=== PATIENT | female | born 1970 | race Two or more races ===

== ENCOUNTER 2017-06-22 21:21 | Emergency (ER) | payer MEDICAID, OTHER ==
[~2017-06-22] VITALS: Ht 157.5 cm; Wt 94.3 kg
[2017-06-22 22:53] LABS: Urine Bilirubin Negative (Negative); Urine Blood Negative /uL (Negative); Urine Color Yellow (Yellow); Urine Glucose Normal (Normal); Urine Ketone Negative (Negative); Urine Mucus FEW (None Seen); Urine Nitrite POSITIVE (Negative); Urine RBC 3 /hpf (0 - 4); Urine Squamous Epithelial Cell FEW /hpf (<5)
[2017-06-23] MEDS ORDERED: MORPHINE SULFATE INJECTION 1 ML ONE (04:40)
[2017-06-23] MEDS ORDERED: ONDANSETRON HCL 4 MG/2 ML VIAL IV ONE (04:45)
[2017-06-23] MEDS ORDERED: MORPHINE SULF INJ 2 MG/ML SYRINGE 1ML IV ONE (04:45)
[2017-06-23 06:16] LABS: Basophils # (auto) 0 uL; Basophils % (auto) 0.2 % (0.0-2.0); Eosinophils # (auto) 0 uL; Eosinophils % (auto) 0.4 % (0.0-7.0); Hematocrit 33.1 % (36.0-46.0); Hemoglobin 10.8 g/dL (12.2-16.2); Lymphocytes # (auto) 1.2 uL; Lymphocytes % (auto) 10.8 % (10.0-50.0); Mean Corpuscular Hgb Conc. 32.7 g/dL (32.0-36.0); Mean Corpuscular Volume 88.6 fL (80.0-100.0); Mean Platelet Volume 7.6 fL (6.9-10.8); Monocytes # (auto) 1.2 uL; Monocytes % (auto) 10.6 % (0.0-12.0); Neutrophils # (auto) 8.7 uL; Nucleated Red Blood Cells % 0.1 %; Platelet Count (auto) 225 10^3/uL (140-450); Red Cell Distribution Width 14.3 % (11.8-14.3); White Blood Cell 11.1 10^3/uL (4.4-10.8)
[2017-06-23 06:34] LABS: Potassium 3.8 mmol/L (3.5-5.1)
[2017-06-23 06:38] LABS: Albumin 2.8 g/dL (3.4-5.0); BUN/Creatinine Ratio 11.4; Calcium 7.9 mg/dL (8.5-10.1)
[2017-06-23 06:41] LABS: Bilirubin, Total 0.3 mg/dL (0.2-1.0); Total Protein 6.7 g/dL (6.4-8.2)
[2017-06-23 07:06] VITALS: BP 125/63
[2017-06-23] MEDS ORDERED: cefTRIAXone 1GM/50ML D5W 50 ML IV ONE (07:15)
== END 2017-06-23 09:16 | disposition home or self-care (01) ==
LOC: ER 21:31
DX: N39.0 Urinary tract infection, site not specified (principal); J45.909 Unspecified asthma, uncomplicated; I10 Essential (primary) hypertension; E11.9 Type 2 diabetes mellitus without complications; E44.0 Moderate protein-calorie malnutrition; Z68.38 Body mass index [BMI] 38.0-38.9, adult; K76.0 Fatty (change of) liver, not elsewhere classified
CPT/HCPCS: 36415; 74176; 80053; 81001; 82150; 83690; 84702; 85025; 96374; 96375; 99285; J2270; J2405; J7030

== ENCOUNTER 2021-07-18 08:05 | Emergency (ER) | payer MEDICAID ==
[~2021-07-18] VITALS: Ht 160 cm; Wt 91.2 kg
[2021-07-18 08:07] VITALS: BP 172/89
[2021-07-18 09:08] LABS: Urine Bacteria NONE SEEN /hpf (None Seen); Urine Blood TRACE /uL (Negative); Urine Specific Gravity 1.018 (1.001-1.035); Urine WBC <1 /hpf (0 - 5)
[2021-07-18 09:14] LABS: Basophils # (auto) 0 10 ^3/uL (0-0.2); Basophils % (auto) 0.5 % (0.0-2.0); Eosinophils # (auto) 0.2 10 ^3/uL (0-0.8); Eosinophils % (auto) 2.8 % (0.0-7.0); Hematocrit 38.4 % (36.0-46.0); Hemoglobin 12.9 g/dL (12.2-16.2); Lymphocytes # (auto) 1.5 10 ^3/uL (0.4-5.4); Lymphocytes % (auto) 27.6 % (10.0-50.0); Mean Corpuscular Hgb Conc. 33.7 g/dL (32.0-36.0); Monocytes # (auto) 0.4 10 ^3/uL (0-1.3); Monocytes % (auto) 6.8 % (0.0-12.0); Neutrophils # (auto) 3.4 10 ^3/uL (1.6-8.6); Neutrophils % (auto) 62.3 % (37.0-80.0); Nucleated Red Blood Cells % 0.1 %; Red Blood Cells 4.31 10^6/uL (4.0-5.20); Red Cell Distribution Width 13.7 % (11.8-14.3); White Blood Cell 5.5 10^3/uL (4.4-10.8)
[2021-07-18 09:20] LABS: Albumin 3.6 g/dL (3.4-5.0); Calcium 8.5 mg/dL (8.5-10.1)
[2021-07-18 09:24] LABS: BUN/Creatinine Ratio 22.1; Bilirubin, Total 0.3 mg/dL (0.2-1.0); Total Protein 7.8 g/dL (6.4-8.2)
== END 2021-07-18 09:20 | disposition left against medical advice (07) ==
LOC: ER 08:05
DX: M54.9 Dorsalgia, unspecified (principal); Z53.21 Procedure and treatment not carried out due to patient leaving prior to being seen by health care provider
CPT/HCPCS: 36415; 80053; 81001; 85025; 93005

== ENCOUNTER 2024-12-05 10:45 | Inpatient (IN) | payer MEDICAID ==
[~2024-12-05] VITALS: Ht 160 cm; Wt 94.0 kg
--- NOTE | 2024-12-05 10:58 | ECG ---
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
--- NOTE | 2024-12-05 11:25 | ED.PDOC ---
SOB-HPI HPI Comments 54-year-old female presents with a chief complaint of SOB and cough x onset yesterday. Patient denies supplemental oxygen use at home, but was sating at 91% in triage and placed on 2L/NC. Patient reports that her cough is dry and nonproductive. Patient denies chest pain, abdominal pain, or headache at this time. Patient denies any sick contacts at home. Patient complains of Generalized body aches, dry cough, shortness of breath since last night. Denies sick contacts. PMHx: Depression, DM, HTN PSHx: , Appendectomy HPI: Poor Historian. REVIEW OF SYSTEMS: CONSTITUTIONAL: Denies acute: fever, diaphoresis, chills, HEAD: Denies acute: headache, photophobia Eyes: Denies acute: Double vision, vision loss, eye pain, eye discharge. EARS: Denies acute: tinnitus, hearing loss, ear discharge, ear pain, THROAT: Denies acute: sore throat, swelling, difficulty swallowing , pain with swallowing, change in voice. NECK: Denies acute: neck pain, neck swelling, stiff neck. HEART: Denies acute : chest pain, palpitations, LUNGS: Denies acute: , wheezing, , hemoptysis ABDOMEN: Denies acute: abdominal pain, Nausea, Vomiting, diarrhea, melena , hematemesis, hematochezia SKIN: Denies acute: rash, redness, lesions, itchiness. EXTREMITIES: Denies acute: calf pain, numbness, tingling, weakness, denies pain in extremity. Denies acute: Low back pain. Neuro: Denies acute: focal neurological deficit, motor or sensory focal neurological deficit, tremors, seizure like activity, confusion, dizziness, change in mental status, loss of bowel or bladder function, cauda equina like symptoms. : Denies acute: dysuria, hematuria, flank pain, increase in urinary frequency. PSYCH: Denies acute: hallucination, suicidal ideation, homicidal ideation. FEMALE: Denies acute: abnormal vaginal bleeding, foul odor, unusual discharge. PHYSICAL EXAM: General: [id number] acute distress, awake and alert. Head: normocephalic, atraumatic. Neck: supple, trachea is midline, no swelling. Throat: Normal phonation. Eyes:, no erythema, no purulent discharge, no proptosis, no icterus. Heart: regular tachycardic, no significant murmur appreciated. Lungs: no apparent respiratory distress, Able to speak in full sentences. No wheezing, no rhonchi, no crackles. No stridors Clear to auscultation bilaterally. Abdomen: non tender to palpation, non distended, soft, no guarding, no rebound, + bowel sounds. Obese Neuro: Awake, Alert, oriented to name, self, situation, follows commands GCS=15. Speech is normal. Skin: no petechia, no purpura, no cyanosis, non-pale, not jaundice. Lower extremities: --no - Pitting edema no deformity, no focal swelling, no calf TTP. Makes eye contact. moves all four extremities. Face: No apparent facial droop Ambulating in the ED independently. 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 Was a procedure done?: No Differential Dx Differential Diagnosis: Anxiety, Asthma, Bronchitis, Cardiogenic Shock, CHF, COPD, Dysrhythmia, Hypertension, Hyperventilation, Hyponatremia, Myocardial infarction, Panic Attack, Pneumonia, Pneumothorax, PSVT, Pulmonary Embolism, Respiratory Distress, Sinusitis, Allergic Rhinitis, Otitis Media, URI X-Ray, Labs, Meds, VS Vital Signs Date Time Temp Pulse Resp B/P (MAP) Pulse Ox O2 Delivery O2 Flow Rate FiO2 12/05/24 18:03 98.3 94 20 108/71 (83) 97 98.3 12/05/24 13:13 100.5 108 20 108/67 (81) 97 100.5 12/05/24 13:13 100.5 12/05/24 12:38 18 98 Nasal Cannula* 2 28 12/05/24 12:11 100.7 12/05/24 12:02 100.7 127 20 133/82 (99) 96 100.7 12/05/24 12:02 127 20 96 Nasal Cannula 3.0 12/05/24 11:30 22 96 Nasal Cannula* 3 32 12/05/24 10:57 124 12/05/24 10:55 99.8 125 19 131/80 (97) 91 99.8 Lab Test 12/05/24 19:40 12/05/24 14:38 12/05/24 12:40 12/05/24 11:54 Range/Units Blood Gas Specimen Type Arterial Blood Gas Sample Site Right radial Blood Gas Patient Temperature 37.0 Arterial Blood Date Drawn [id number] Arterial Blood pH 7.428 7.350-7.450 Arterial Blood Partial Pressure CO2 32.2 32.0-45.0 mmHg Arterial Blood Partial Pressure O2 54.4 *L 83.0-108.0 mmHg Arterial Blood HCO3 20.8 L 21.0-28.0 mmol/L Arterial Blood Oxygen Saturation 88.4 L 94.0-98.0 % Arterial Blood Base Excess -2.6 L -2.0-3.0 mmol/L Arterial Blood Oxyhemoglobin 87.5 L 94.0-98.0 % Arterial Blood Carboxyhemoglobin 0.4 L 0.5-1.5 % Arterial Blood Methemoglobin 0.6 0.0-1.5 % Benito Test Yes Blood Gas Total Hemoglobin 13.60 12.0-16.0 g/dL Blood Gas Modality Room air FiO2 % 21.0 Blood Gas Critical Value Read Back Yes Blood Gas Notified Whom po Gómez Blood Gas Notified Time [id number] Blood Gas Notified By Nadia giang Troponin I High Sensitivity 9 4 </=34 ng/L Urine Color Light-yellow Yellow Urine Clarity Clear Clear Urine pH 7.0 5.0-9.0 Urine Specific [place] 1.020 1.001-1.035 Urine Protein Negative Negative Urine Ketones Negative Negative Urine Blood Trace H Negative /uL Urine Nitrite Negative Negative Urine Bilirubin Negative Negative Urine Urobilinogen Normal Negative mg/dL Urine Leukocyte Esterase Negative Negative /uL Urine RBC 5 0 - 4 /hpf Urine Microscopic WBC 7 H 0-5 /HPF Urine Squamous Epithelial Cells Few <5 /hpf Urine Bacteria Few H None Seen /hpf Urine Yeast (Budding) Occasional None Seen /hpf Urine Glucose Normal Normal mg/dL Test 12/05/24 11:21 12/05/24 11:04 Range/Units Influenza Type A Antigen Negative Negative Influenza Type B Antigen Negative Negative SARS-CoV-2 Antigen (Rapid) Negative NEGATIVE White Blood Count 7.2 4.4-10.8 10^3/uL Red Blood Count 4.55 4.0-5.20 10^6/uL Hemoglobin 13.3 12.2-16.2 g/dL Hematocrit 40.1 36.0-46.0 % Mean Corpuscular Volume 88.2 80.0-100.0 fL Mean Corpuscular Hemoglobin 29.3 28.0-32.0 pg Mean Corpuscular Hemoglobin Concent 33.2 32.0-36.0 g/dL Red Cell Distribution Width 13.6 11.8-14.3 % Platelet Count 268 140-450 10^3/uL Mean Platelet Volume 7.8 6.9-10.8 fL Neutrophils (%) (Auto) 85.1 H 37.0-80.0 % Lymphocytes (%) (Auto) 6.1 L 10.0-50.0 % Monocytes (%) (Auto) 7.7 0.0-12.0 % Eosinophils (%) (Auto) 0.5 0.0-7.0 % Basophils (%) (Auto) 0.6 0.0-2.0 % Neutrophils # (Auto) 6.1 1.6-8.6 10 ^3/uL Lymphocytes # (Auto) 0.4 0.4-5.4 10 ^3/uL Monocytes # (Auto) 0.6 0-1.3 10 ^3/uL Eosinophils # (Auto) 0 0-0.8 10 ^3/uL Basophils # (Auto) 0 0-0.2 10 ^3/uL Nucleated Red Blood Cells 0.1 % Sodium Level 137 136-145 mmol/L Potassium Level 3.8 3.5-5.1 mmol/L Chloride Level 102 98-107 mmol/L Carbon Dioxide Level 27 20-31 mmol/L Anion Gap 8 5-15 Blood Urea Nitrogen 11 9-23 mg/dL Creatinine 0.93 0.550-1.02 mg/dL Glomerular Filtration Rate Calc 73 >90 mL/min BUN/Creatinine Ratio 11.8 10.0-20.0 Serum Glucose 113 H 74-106 mg/dL Lactic Acid Level 1.7 0.4-2.0 mmol/L Calcium Level 9.5 8.7-10.4 mg/dL Total Bilirubin 0.4 0.2-1.0 mg/dL Aspartate Amino Transferase (AST) 22 13-40 U/L Alanine Aminotransferase (ALT) 31 7-40 U/L Alkaline Phosphatase 94 46-116 U/L Troponin I High Sensitivity < 3 L </=34 ng/L B-Type Natriuretic Peptide 21.81 0-100 pg/mL Total Protein 7.7 5.7-8.2 g/dL Albumin 4.9 H 3.2-4.8 g/dL Monoscreen Negative Current Medications Medications (Trade) Dose Ordered Sig/Kassie Route Start Time Stop Time Status Last Admin Albuterol (Ventolin Medneb) 2.5 mg ONCE ONCE NEB 12/05/24 11:00 12/05/24 11:01 DC 12/05/24 11:29 Ipratropium [place] (Atrovent Medneb) 1 mg ONCE ONCE NEB 12/05/24 11:00 12/05/24 11:01 DC 12/05/24 11:29 Methylprednisolone Sodium Succinate (Solu Medrol) 125 mg ONCE ONCE IV 12/05/24 11:00 12/05/24 11:01 DC 12/05/24 12:29 Sodium Chloride 1,000 ml @ 1,000 mls/hr Q1H ONCE IV 12/05/24 12:00 12/05/24 12:59 DC 12/05/24 12:20 Acetaminophen (Tylenol Tablet Or Capsule) 1,000 mg ONCE ONCE PO 12/05/24 12:15 12/05/24 12:16 DC 12/05/24 12:11 Ceftriaxone Sodium 50 ml @ 100 mls/hr ONCE ONCE IV 12/05/24 12:15 12/05/24 12:44 DC 12/05/24 12:30 PATIENT: BUD DUGANT: [id number]: [id number] : 1970 LOC: ER ROOM / BED: / AGE / SEX: 54 / F ADM STATUS: REG ER SERVICE 1052 ORDERING PHYSICIAN: MIGUEL GOMEZ DO PROCEDURE(s): CXRP - CHEST PORTABLE REASON: sob ORDER NUMBER(s): [id number], ACCESSION NUMBER(s): [id number] CHEST RADIOGRAPH Indication: sob Technique: Single frontal view of the chest was obtained COMPARISON: None FINDINGS: Lines and Tubes: None Lungs: Clear Pleura: No effusion. No pneumothorax. Cardiomediastinal contours: Unremarkable Bones: Unremarkable IMPRESSION: 1. No acute disease. ATED BY: EDMOND VIZCARRA MD DICTATED DATE/TIME: 12/05/24 1203 SIGNED BY: EDMOND VIZCARRA MD SIGNED DATE/TIME: 12/05/24 1203 Time of 1ST Reevaluation: 11:30 Reevaluation 1ST: Unchanged Patient Education/Counseling: Diagnosis, Treatment Family Education/Counseling: No Family Present Comments Patient presented with the above HPI.--fever-and respiratory symptoms---workup was initiated. patient was found with the above mentioned diagnosis. the following medications were ordered: please refer to order lists of meds and tests obtained by myself Dr. Gomez. Patient ED course and VS have been stabilized. Patient has been reassessed in the ED and remained in a stable condition. Pertinent incidental findings were discussed with the patient and/or family. Patient/family voices understanding and is agreeable with plan. Patient has been observed in the ED adequate length of time to insure improvement/stability. Escalation of care considered: Consideration of escalation to observation or admission ABG shows hypoxemia. Patient was placed on supplemental oxygen Patient was ADMITTED to the medicine team for further evaluation and treatment of their presentation. All the reports of any imaging studies that were ordered by myself were reviewed by myself. Departure 1 Departure Time of Disposition: 15:45 Impression: Primary Impression: UTI (urinary tract infection) Additional Impressions: Malaise Yeast UTI Hypoxemia Fever Disposition: ADMITTED INPATIENT Admit to: Tele Condition: Guarded Discharged With: Self Critical Care Note Critical Care Time?: No I personally scribed for MIGUEL GOMEZ DO ([email or web address]) on 12/05/24 at 11:25. [place] ctronically submitted by Toni Nova ([email or web address]). I personally scribed for MIGUEL GOMEZ DO ([email or web address]) on 12/05/24 at 12:15. Elec tronically submitted by Toni Nova ([email or web address]). I personally scribed for MIGUEL GOMEZ DO ([email or web address]) on 12/05/24 at 20:57. Elect ronically submitted by Toni Nova ([email or web address]). I personally scribed for MIGUEL GOMEZ DO ([email or web address]) on 12/05/24 at 21:13. Electr onically submitted by Toni Nova ([email or web address]). MIGUEL GOMEZ DO Dec 05, 2024 11:25
[2024-12-05 11:29] LABS: Basophils # (auto) 0 10 ^3/uL (0-0.2); Basophils % (auto) 0.6 % (0.0-2.0); Eosinophils # (auto) 0 10 ^3/uL (0-0.8); Eosinophils % (auto) 0.5 % (0.0-7.0); Hematocrit 40.1 % (36.0-46.0); Hemoglobin 13.3 g/dL (12.2-16.2); Lymphocytes # (auto) 0.4 10 ^3/uL (0.4-5.4); Lymphocytes % (auto) 6.1 % (10.0-50.0); Mean Corpuscular Hemoglobin 29.3 pg (28.0-32.0); Mean Corpuscular Hgb Conc. 33.2 g/dL (32.0-36.0); Mean Corpuscular Volume 88.2 fL (80.0-100.0); Monocytes # (auto) 0.6 10 ^3/uL (0-1.3); Monocytes % (auto) 7.7 % (0.0-12.0); Neutrophils # (auto) 6.1 10 ^3/uL (1.6-8.6); Neutrophils % (auto) 85.1 % (37.0-80.0); Nucleated Red Blood Cells % 0.1 %; Platelet Count (auto) 268 10^3/uL (140-450); Red Blood Cells 4.55 10^6/uL (4.0-5.20); Red Cell Distribution Width 13.6 % (11.8-14.3); White Blood Cell 7.2 10^3/uL (4.4-10.8)
[2024-12-05] MEDS: ALBUTEROL SULF 2.5 MG/0.5ML(0.5%) NEB SOLN NEB ONE (11:29)
[2024-12-05] MEDS: IPRATROPIUM BROM 0.5 MG/2.5ML INH SOL NEB ONE (11:29)
[2024-12-05 11:51] LABS: Alanine Aminotransferase 31 U/L (7-40); Alkaline Phosphatase 94 U/L (46-116); Anion Gap 8 (5-15); Aspartate Aminotransferase 22 U/L (13-40); BUN/Creatinine Ratio 11.8 (10.0-20.0); Blood Urea Nitrogen 11 mg/dL (9-23); Calcium 9.5 mg/dL (8.7-10.4); Carbon Dioxide 27 mmol/L (20-31); Chloride 102 mmol/L (98-107); Potassium 3.8 mmol/L (3.5-5.1); Sodium 137 mmol/L (136-145); Total Protein 7.7 g/dL (5.7-8.2)
[2024-12-05 11:52] LABS: Albumin 4.9 g/dL (3.2-4.8); Bilirubin, Total 0.4 mg/dL (0.2-1.0); Glucose 113 mg/dL (74-106)
--- NOTE | 2024-12-05 12:06 | DVH ---
CHEST RADIOGRAPH Indication: sob Technique: Single frontal view of the chest was obtained COMPARISON: None FINDINGS: Lines and Tubes: None Lungs: Clear Pleura: No effusion. No pneumothorax. Cardiomediastinal contours: Unremarkable Bones: Unremarkable IMPRESSION: 1. No acute disease.
[2024-12-05] MEDS: ACETAMINOPHEN 500 MG TAB or CAP PO ONE (12:11)
[2024-12-05 12:16] LABS: Urine Bacteria FEW /hpf (None Seen); Urine Blood TRACE /uL (Negative); Urine Budding Yeast OCCASIONAL /hpf (None Seen); Urine Clarity Clear (Clear); Urine Color Light-Yellow (Yellow); Urine Protein, UAD Negative (Negative); Urine Squamous Epithelial Cell FEW /hpf (<5); Urine Urobilinogen Normal (Negative); Urine WBC 7 /HPF (0-5)
[2024-12-05] MEDS: SODIUM CHLORIDE 0.9% 1,000 ML IV ONE (12:20)
[2024-12-05 12:25] LABS: COVID19 ANTIGEN SOFIA FIA NEGATIVE (NEGATIVE)
[2024-12-05 12:26] LABS: Rapid Influenza A Negative (Negative); Rapid Influenza B Negative (Negative)
[2024-12-05] MEDS: methylPREDNISolone SOD SUCC 125 MG/2 ML VL IV ONE (12:29)
[2024-12-05] MEDS: cefTRIAXone 1GM/50ML D5W 50 ML IV ONE (12:30)
[2024-12-05 12:38] VITALS: RESP 18; O2SAT 98
[2024-12-05 19:49] LABS: Base Excess -2.6 mmol/L (-2.0-3.0)
[2024-12-05] MEDS ORDERED: DOCUSATE SOD 100 MG CAP PO PRN (21:15)
[2024-12-05] MEDS ORDERED: HYDROcodone-ACET 5/325MG TAB PO PRN (21:15)
[2024-12-05] MEDS ORDERED: DEXTROSE (50%) 50ML SYRG IV PRN (21:15)
[2024-12-05] MEDS ORDERED: ONDANSETRON HCL 4 MG/2 ML VIAL IV PRN (21:15)
[2024-12-05 21:54] VITALS: BP 115/51; PULSE 97; RESP 17; TEMP 99; O2SAT 99
--- NOTE | 2024-12-05 21:57 | DVHHP2 ---
History of Present Illness Reason for Visit: Acute respiratory failure with hypoxia History of Present Illness The patient is a 54-year-old female with past medical history of asthma, HLD, diabetes mellitus, depression, and hypertension who presented to [facility] ED with complaint of shortness of breaths. Patient reports symptoms progressively get worse with generalized weakness, malaise, increased work of breathing, getting worse that prompted this visit. Patient was seen and evaluated in the ED, laboratory data shows WBC 7.2, platelets 268, sodium 137, potassium 3.8, BUN 11, creatinine 0.93, GFR 73, glucose 113, troponin 9, albumin 4.9. Chest x-ray show no acute disease. Please see medication section in the computer. On my assessment, patient denied chest pain, no headache, no dizziness, currently on oxygen, no nausea, no vomiting, no fever, no chills. Patient was admitted for further evaluation and medical management. Past Medical History Depression, DM, HTN, HLD, asthma Past Surgical History , Appendectomy Family History Reviewed, noncontributory to the management of this case. Past Social History The patient lives at home, denies smoking, alcohol or illicit drugs abuse. Review of Systems Constitutional: Yes: Weakness, Malaise; No: Fever, Chills, Sweats, Other Eyes: No: Pain, Vision change, Conjunctivae inflammation, Eyelid inflammation, Other, Redness ENT: No: Ear pain, Ear discharge, Nose pain, Nose discharge, Nose congestion, Mouth pain, Mouth swelling, Throat pain, Throat swelling, Other Respiratory: Shortness of breath, SOB with excertion, Other (SOB at rest); No: Cough, Dry, Wheezing, Hemoptysis, Pleuritic Pain, Sputum, Wheezing Cardiovascular: No: Chest Pain, Palpitations, Orthopnea, Paroxysmal Noc. Dyspnea, Edema, Lt Headedness, Other Gastrointestinal: No: Nausea, Vomiting, Abdominal Pain, Diarrhea, Constipation, Melena, Hematochezia, Other Genitourinary: No Dysuria, No Frequency, No Incontinence, No Hematuria, No Retention, No Other Musculoskeletal: No: other, neck pain, shoulder pain, arm pain, back pain, hand pain, leg pain, foot pain Skin: No: Rash, Lesions, Jaundice, Bruising, Other Neurological: No: Weakness, Numbness, Incoordination, Change in speech, Confusion, Seizures, Other Allergies: Coded Allergies: NO KNOWN ALLERGIES (Unverified , 07/18/21) Medications Current Medications Medications Dose Ordered Sig/Kassie Route Start Time Stop Time Status Last Admin Dose Admin Losartan Potassium 25 mg DAILY PO 12/06/24 10:00 Famotidine 20 mg DAILY IV 12/06/24 10:00 Methylprednisolone Sodium Succinate 40 mg BID IV 12/05/24 22:00 Albuterol 2.5 mg Q4HPRN PRN NEB 12/05/24 21:15 Ipratropium [place] 0.5 mg Q4HPRN PRN NEB 12/05/24 21:15 Atorvastatin Calcium 10 mg HS PO 12/05/24 22:00 Ceftriaxone Sodium 50 ml @ 100 mls/hr DAILY@1200 IV 12/06/24 12:00 Diagnostic Test (Pha) 1 strip ACHS 12/05/24 22:00 Insulin Human Regular ACHS SC 12/05/24 22:00 Dextrose 50 ml UD PRN IV 12/05/24 21:15 Sodium Chloride 1,000 ml @ 60 mls/hr [id number] IV 12/05/24 21:15 Acetaminophen/ Hydrocodone Bitart 1 tab Q4HP PRN PO 12/05/24 21:15 Ondansetron HCl 4 mg Q4HP PRN IV 12/05/24 21:15 Docusate Sodium 100 mg BIDPRN PRN PO 12/05/24 21:15 Acetaminophen 650 mg Q6HP PRN PO 12/05/24 21:15 Exam Vital Signs Vital Signs Date Time Temp Pulse Resp B/P (MAP) Pulse Ox O2 Delivery O2 Flow Rate FiO2 12/05/24 21:55 100.4 105 24 126/82 (97) 95 100.4 12/05/24 12:38 Nasal Cannula* 2 28 General Appearance: Alert, Oriented X3, Cooperative, No acute distress HEENT: Atraumatic, PERRLA, EOMI, Mucous membr. moist/pink Respiratory: Normal air movement, Other (Diminished breath sounds) Cardiovascular: Regular rate, Normal S1, Normal S2, No murmurs Abdominal: Normal bowel sounds, Soft, No tenderness, No hepatospenomegaly, No masses Extremities: No clubbing, No cyanosis, No edema, Normal pulses, No tenderness/swelling Skin: No rashes, No breakdown, No significant lesion Neuro: Normal speech, Normal tone, Sensation intact, Cranial nerves 3-12 NL, Reflexes 2+, Other (Generalized weakness) Psych/Mental Status: Mental status NL, Mood NL Labs/Xrays Labs Test 12/05/24 19:40 12/05/24 14:38 12/05/24 11:54 12/05/24 11:21 Range/Units Blood Gas Specimen Type Arterial Blood Gas Sample Site Right radial Blood Gas Patient Temperature 37.0 Arterial Blood Date Drawn [id number] Arterial Blood pH 7.428 7.350-7.450 Arterial Blood Partial Pressure CO2 32.2 32.0-45.0 mmHg Arterial Blood Partial Pressure O2 54.4 *L 83.0-108.0 mmHg Arterial Blood HCO3 20.8 L 21.0-28.0 mmol/L Arterial Blood Oxygen Saturation 88.4 L 94.0-98.0 % Arterial Blood Base Excess -2.6 L -2.0-3.0 mmol/L Arterial Blood Oxyhemoglobin 87.5 L 94.0-98.0 % Arterial Blood Carboxyhemoglobin 0.4 L 0.5-1.5 % Arterial Blood Methemoglobin 0.6 0.0-1.5 % Benito Test Yes Blood Gas Total Hemoglobin 13.60 12.0-16.0 g/dL Blood Gas Modality Room air FiO2 % 21.0 Blood Gas Critical Value Read Back Yes Blood Gas Notified Whom po Gómez Blood Gas Notified Time [id number] Blood Gas Notified By Nadia giang Troponin I High Sensitivity 9 </=34 ng/L Urine Color Light-yellow Yellow Urine Clarity Clear Clear Urine pH 7.0 5.0-9.0 Urine Specific [place] 1.020 1.001-1.035 Urine Protein Negative Negative Urine Ketones Negative Negative Urine Blood Trace H Negative /uL Urine Nitrite Negative Negative Urine Bilirubin Negative Negative Urine Urobilinogen Normal Negative mg/dL Urine Leukocyte Esterase Negative Negative /uL Urine RBC 5 0 - 4 /hpf Urine Microscopic WBC 7 H 0-5 /HPF Urine Squamous Epithelial Cells Few <5 /hpf Urine Bacteria Few H None Seen /hpf Urine Yeast (Budding) Occasional None Seen /hpf Urine Glucose Normal Normal mg/dL Influenza Type A Antigen Negative Negative Influenza Type B Antigen Negative Negative SARS-CoV-2 Antigen (Rapid) Negative NEGATIVE Test 12/05/24 11:04 Range/Units White Blood Count 7.2 4.4-10.8 10^3/uL Red Blood Count 4.55 4.0-5.20 10^6/uL Hemoglobin 13.3 12.2-16.2 g/dL Hematocrit 40.1 36.0-46.0 % Mean Corpuscular Volume 88.2 80.0-100.0 fL Mean Corpuscular Hemoglobin 29.3 28.0-32.0 pg Mean Corpuscular Hemoglobin Concent 33.2 32.0-36.0 g/dL Red Cell Distribution Width 13.6 11.8-14.3 % Platelet Count 268 140-450 10^3/uL Mean Platelet Volume 7.8 6.9-10.8 fL Neutrophils (%) (Auto) 85.1 H 37.0-80.0 % Lymphocytes (%) (Auto) 6.1 L 10.0-50.0 % Monocytes (%) (Auto) 7.7 0.0-12.0 % Eosinophils (%) (Auto) 0.5 0.0-7.0 % Basophils (%) (Auto) 0.6 0.0-2.0 % Neutrophils # (Auto) 6.1 1.6-8.6 10 ^3/uL Lymphocytes # (Auto) 0.4 0.4-5.4 10 ^3/uL Monocytes # (Auto) 0.6 0-1.3 10 ^3/uL Eosinophils # (Auto) 0 0-0.8 10 ^3/uL Basophils # (Auto) 0 0-0.2 10 ^3/uL Nucleated Red Blood Cells 0.1 % Sodium Level 137 136-145 mmol/L Potassium Level 3.8 3.5-5.1 mmol/L Chloride Level 102 98-107 mmol/L Carbon Dioxide Level 27 20-31 mmol/L Anion Gap 8 5-15 Blood Urea Nitrogen 11 9-23 mg/dL Creatinine 0.93 0.550-1.02 mg/dL Glomerular Filtration Rate Calc 73 >90 mL/min BUN/Creatinine Ratio 11.8 10.0-20.0 Serum Glucose 113 H 74-106 mg/dL Lactic Acid Level 1.7 0.4-2.0 mmol/L Calcium Level 9.5 8.7-10.4 mg/dL Total Bilirubin 0.4 0.2-1.0 mg/dL Aspartate Amino Transferase (AST) 22 13-40 U/L Alanine Aminotransferase (ALT) 31 7-40 U/L Alkaline Phosphatase 94 46-116 U/L B-Type Natriuretic Peptide 21.81 0-100 pg/mL Total Protein 7.7 5.7-8.2 g/dL Albumin 4.9 H 3.2-4.8 g/dL Monoscreen Negative PATIENT: KOSTA DUGAN ACCT: [id number] UNIT: [id number] : 1970 LOC: ER ROOM / BED: / AGE / SEX: 54 / F ADM STATUS: REG ER SERVICE 1052 ORDERING PHYSICIAN: MIGUEL GOMEZ DO PROCEDURE(s): CXRP - CHEST PORTABLE REASON: sob ORDER NUMBER(s): [id number], ACCESSION NUMBER(s): [id number] CHEST RADIOGRAPH Indication: sob Technique: Single frontal view of the chest was obtained COMPARISON: None FINDINGS: Lines and Tubes: None Lungs: Clear Pleura: No effusion. No pneumothorax. Cardiomediastinal contours: Unremarkable Bones: Unremarkable IMPRESSION: 1. No acute disease. Assessment/Plan Assessment/Plan Hypoxemia UTI (urinary tract infection) Malaise Yeast UTI Fever, unspecified Generalized weakness Plan 1. Admit to telemetry unit 2. Breathing treatment 3. Pain control management 4. Management of fluids and electrolytes 5. Consultation for hospitalist 6. Diagnostic tests chest x-ray 7. DVT prophylaxis on SCDs 8. Repeat labs CBC, CMP in a.m. 9. Continue with current medical management 10. Treatment plan discussed with patient and RN. Patient verbalized understanding. Plan discussed with: Patient, Other (RN) My Orders Orders - SALTY MAHMOOD DNP Procedure Category Date Status Time Losartan Tablet PHA 12/06/24 In Process (Cozaar Tablet) 10:00 Famotidine Injection PHA 12/06/24 In Process (Pepcid Injection) 10:00 Methylprednisolone PHA 12/05/24 In Process Sod Succ (Solu Medrol 22:00 Albuterol Medneb PHA 12/05/24 In Process (Ventolin Medneb) 21:15 Ipratropium Medneb PHA 12/05/24 In Process (Atrovent Medneb) 21:15 Atorvastatin (Lipitor) PHA 12/05/24 In Process 22:00 Ceftriaxone 1gm/50ml PHA 12/06/24 In Process D5w (Rocephin) 12:00 Consistent DIET 12/06/24 Transmitted Carb(Ccho)Diabetes Breakfast Glucose Blood PHA 12/05/24 In Process (Accu-Chek Comfort 22:00 Insulin R (Human) PHA 12/05/24 In Process (Insulin R) 22:00 Dextrose 50% Syringe PHA 12/05/24 In Process 21:15 Allergies JORGE 12/05/24 In Process 21:05 Code Status CODE 12/05/24 Transmitted 21:05 Sodium Chloride 0.9% PHA 12/05/24 In Process 21:15 Oxygen Per Hour RT 12/05/24 Transmitted 21:05 Hydrocodone-Acet PHA 12/05/24 In Process 5/325mg Tab ([place] 21:15 Ondansetron Hcl PHA 12/05/24 In Process (Zofran) 21:15 Docusate Sodium PHA 12/05/24 In Process Capsule (Colace 21:15 Complete Blood Count LAB 12/06/24 Verified 04:00 Comprehensive LAB 12/06/24 Verified Metabolic Panel 04:00 Condition: Serious JORGE 12/05/24 In Process 21:05 Acetaminophen Tablet PHA 12/05/24 In Process (Tylenol Tablet) 21:15 Bedrest With Bathroom JORGE 12/05/24 In Process Privileg 21:05 Sequential JORGE 12/05/24 In Process Compression Device Admit ADMIT 12/05/24 Verified 21:56 Nitroglycerin PHA 12/05/24 Verified Sublingual (Ntrostat 22:00 Morphine Sulfate PHA 12/05/24 Verified Injection 22:00 Stat Ekg For Chest JORGE 12/05/24 Verified Pain 21:56 Notify Md Of Changes JORGE 12/05/24 Verified From Base 21:56 Banquet Manager For [facility] 12/05/24 Verified 24 Hours 21:56 Emergency Dysrhythmia JORGE 12/05/24 Verified Protocol 21:56 Rhythm Strips Once JORGE 12/05/24 Verified Every Shift 21:56 Oxygen By Nasal RT 12/05/24 Verified Cannula 21:56 Problem List: (1) Hypoxemia (2) Fever, unspecified (3) Yeast UTI (4) Malaise (5) UTI (urinary tract infection) (6) Generalized weakness Date of Service: Dec 05, 2024 Billing Provider: OKPAN,SALTY O DNP Common Visit Codes: 04960-[id number] INP/OBS CARE (HIGH) SALTY MAHMOOD DNP Dec 05, 2024 21:57
[2024-12-05] MEDS ORDERED: MORPHINE SULFATE INJ 2 MG/ml SYRG IV PRN (22:00)
[2024-12-05] MEDS ORDERED: NITROGLYCERIN 0.4 MG SL TAB SL PRN (22:00)
[2024-12-05] MEDS: ACETAMINOPHEN 325 MG TAB PO PRN (22:01)
[2024-12-05] MEDS: IPRATROPIUM BROM 0.5 MG/2.5ML INH SOL NEB PRN (22:03)
[2024-12-05] MEDS: ALBUTEROL SULF 2.5 MG/0.5ML(0.5%) NEB SOLN NEB PRN (22:03)
[2024-12-05 22:30] VITALS: PULSE 102; RESP 17; O2SAT 96
[2024-12-05] MEDS: ACCU-CHEK COMFORT CURVE STRIP VI SCH (22:45)
[2024-12-05 22:54] VITALS: BP 115/51; PULSE 97; RESP 17; TEMP 99; O2SAT 99
[2024-12-05] MEDS: methylPREDNISolone SOD SUCC 40 MG/ML VL IV SCH (23:02)
[2024-12-05] MEDS: ATORVASTATIN 20 MG TAB PO SCH (23:06)
[2024-12-05] MEDS: InsuLIN REG 1unit/0.01ml Soln (100units/ml) SC SCH (23:10)
[2024-12-05] MEDS: SODIUM CHLORIDE 0.9% 1,000 ML IV SCH (23:11)
[2024-12-05 23:34] VITALS: BP 129/70; PULSE 102; RESP 17; TEMP 98.8; O2SAT 96
[2024-12-05 23:46] VITALS: BP 115/51; PULSE 97; RESP 18; TEMP 99; O2SAT 99
[2024-12-06] VITALS (14 sets, daily range): BP systolic 98–126; BP diastolic 51–74; PULSE 74–98; RESP 16–24; TEMP 97.6–99.1; O2SAT 95–99
[2024-12-06 06:08] LABS: Basophils # (auto) 0 10 ^3/uL (0-0.2); Basophils % (auto) 0.1 % (0.0-2.0); Eosinophils # (auto) 0 10 ^3/uL (0-0.8); Hematocrit 34.1 % (36.0-46.0); Hemoglobin 11.6 g/dL (12.2-16.2); Lymphocytes # (auto) 0.6 10 ^3/uL (0.4-5.4); Lymphocytes % (auto) 11.4 % (10.0-50.0); Mean Corpuscular Hemoglobin 30.3 pg (28.0-32.0); Mean Corpuscular Hgb Conc. 34.1 g/dL (32.0-36.0); Mean Corpuscular Volume 88.8 fL (80.0-100.0); Monocytes # (auto) 0.2 10 ^3/uL (0-1.3); Monocytes % (auto) 4.1 % (0.0-12.0); Neutrophils # (auto) 4.7 10 ^3/uL (1.6-8.6); Neutrophils % (auto) 84.4 % (37.0-80.0); Platelet Count (auto) 249 10^3/uL (140-450); Red Blood Cells 3.84 10^6/uL (4.0-5.20); White Blood Cell 5.6 10^3/uL (4.4-10.8)
[2024-12-06 06:24] LABS: Alanine Aminotransferase 30 U/L (7-40); Alkaline Phosphatase 81 U/L (46-116); Anion Gap 11 (5-15); BUN/Creatinine Ratio 18.1 (10.0-20.0); Blood Urea Nitrogen 17 mg/dL (9-23); Calcium 9.4 mg/dL (8.7-10.4); Carbon Dioxide 27 mmol/L (20-31); Chloride 104 mmol/L (98-107); Potassium 4.1 mmol/L (3.5-5.1); Sodium 142 mmol/L (136-145)
[2024-12-06 06:25] LABS: Albumin 4.4 g/dL (3.2-4.8); Aspartate Aminotransferase 21 U/L (13-40); Bilirubin, Total 0.3 mg/dL (0.2-1.0)
[2024-12-06 06:30] LABS: Glucose 165 mg/dL (74-106)
[2024-12-06] MEDS: LOSARTAN POTASSIUM 25 MG TAB PO SCH (10:00)
[2024-12-06] MEDS: FAMOTIDINE (10MG/ML) 2ML VL IV SCH (10:10)
[2024-12-06] MEDS: cefTRIAXone 1GM/50ML D5W 50 ML IV SCH (11:40)
[2024-12-06 12:13] LABS: Triglycerides 118 mg/dL (< 150)
[2024-12-06 12:15] LABS: Cholesterol 161 mg/dL (< 200)
[2024-12-06 12:18] LABS: HDL Cholesterol 35 mg/dL (40-59); LDL Cholesterol 105 mg/dL (< 100)
[2024-12-06 13:49] LABS: INR 0.99 (0.9-1.15); Prothrombin Time 10.5 sec (9.3-11.8)
--- NOTE | 2024-12-06 14:25 | DVHPNRES ---
Progress Note Date Seen: Dec 06, 2024 Resident Creating Document: ANTONIO DAVID RESIDENT Has the PT tested + for MRSA If YES, has PT been informed?: No Medical Necessity Reason Pt with a Central, PICC or Fol: No Subjective Review of Systems The patient is a 54-year-old Ecuadorean-speaking female with a past medical history of asthma (since childhood), type 2 diabetes mellitus, hypertension, hyperlipidemia, type 2 obesity, and depression, who presented to the emergency department with progressive shortness of breath and chest tightness that have been worsening over the past several days. She reports having daily episodes of dyspnea and chest tightness, especially during physical activity and at night, but this episode was more intense and prompted her to seek medical attention. She admits to poor adherence to medications and lack of consistent primary care follow-up. She does not take any regular asthma or diabetes medications and has not been evaluated by a veneer stapler. 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 She has no recent travel, sick contacts, or known exposure to allergens or irritants.On presentation, she was found to be in acute hypoxic respiratory failure, requiring oxygen supplementation and nebulized bronchodilator treatments, with improvement in her symptoms. She is currently on 2 L nasal cannula, maintaining adequate oxygen saturation. Laboratory workup revealed: HbA1c of 6.3% (suggesting prediabetes or well-controlled diabetes despite non-adherence) Normal lipid panel Urinalysis with moderate yeast, which may represent a urinary tract infection or contamination Negative blood cultures Negative COVID-19 and Influenza PCR Chest X-ray: No acute findings Hepatitis B and C serologies: Pending She was started on: Inhaled breathing treatments IV fluids Electrolyte repletion DVT prophylaxis with SCDs Observation for possible UTI symptoms Review of Systems (ROS): Constitutional: No fever or chills, reports hot flashes Respiratory: Positive for shortness of breath, chest tightness, no cough or wheezing at present Cardiovascular: Denies chest pain or palpitations GI: Denies nausea, vomiting, or diarrhea : No dysuria or hematuria, urinalysis with yeast Neuro: No headache or confusion Psych: Positive for depression, not on treatment Endocrine: Positive for hot flashes, possible menopausal symptoms Musculoskeletal: No myalgias or joint pain Patient reports: No new complaints Changes from previous H/P or p: No Changes Objective vital signs Vital Sign Date Time Temp Pulse Resp B/P (MAP) Pulse Ox O2 Delivery O2 Flow Rate FiO2 12/06/24 12:30 98.2 79 16 126/65 (85) 97 98.2 12/06/24 08:05 Nasal Cannula* 3 32 Total Intake and Output 12/05/24 12/05/24 12/06/24 15:00 23:00 07:00 Intake Total 1050 ml 100 ml Balance 1050 ml 100 ml medications Current Medications Medications Dose Ordered Sig/Kassie Route Start Time Stop Time Status Last Admin Dose Admin Losartan Potassium 25 mg DAILY PO 12/06/24 10:00 Famotidine 20 mg DAILY IV 12/06/24 10:00 12/06/24 10:10 20 MG Methylprednisolone Sodium Succinate 40 mg BID IV 12/05/24 22:00 12/06/24 10:11 40 MG Albuterol 2.5 mg Q4HPRN PRN NEB 12/05/24 21:15 12/05/24 22:03 2.5 MG Ipratropium [place] 0.5 mg Q4HPRN PRN NEB 12/05/24 21:15 12/05/24 22:03 0.5 MG Atorvastatin Calcium 10 mg HS PO 12/05/24 22:00 12/05/24 23:06 10 MG Ceftriaxone Sodium 50 ml @ 100 mls/hr DAILY@1200 IV 12/06/24 12:00 12/06/24 11:40 100 MLS/HR Diagnostic Test (Pha) 1 strip ACHS 12/05/24 22:00 12/06/24 11:30 1 STRIP Insulin Human Regular ACHS SC 12/05/24 22:00 12/06/24 11:38 3 UNITS Dextrose 50 ml UD PRN IV 12/05/24 21:15 Sodium Chloride 1,000 ml @ 60 mls/hr [id number] IV 12/05/24 21:15 12/05/24 23:11 60 MLS/HR Acetaminophen 650 mg Q6HP PRN PO 12/05/24 21:15 12/06/24 10:08 650 MG Examination Physical Exam: General: Obese female, Ecuadorean-speaking, alert and oriented 3, in no acute distress Vitals: Afebrile, HR and BP within normal limits, O2 sat 94% on 2L NC HEENT: No nasal congestion, oral mucosa moist Cardiac: Regular rate and rhythm, no murmurs Pulmonary: Scattered mild wheezing on auscultation, improved after treatment Abdomen: Soft, non-tender, non-distended : No suprapubic tenderness Extremities: No edema, SCDs in place Skin: No rash Neuro: Alert, grossly non-focal laboratory and microbiology Laboratory Tests 12/06/24 05:27 Test 12/06/24 05:27 Range/Units Serum Glucose 165 H 74-106 mg/dL Microbiology Date/Time Source Procedure Growth Status 12/05/24 12:40 Blood Blood Culture - Preliminary NO GROWTH AFTER 24 HOURS OF INCUBATION. Resulted 12/05/24 11:54 Voided Urine Urine Culture - Preliminary Resulted Problem List/Assessment/Plan Problem List/Assessment/Plan #Acute hypoxic respiratory failure due to asthma exacerbation secondary to poorly controlled asthma due to medication non adherence #Uncontrolled persistent asthma -Methylprednisolone 40 b.i.d. IV -Ipratropium bromide, 0.5 mg -Albuterol 2.5 mg q.4 p.r.n. neb #Type 2 diabetes mellitus ,A1c 6.3% -Insulin sliding scale protocol #Hypertension - Losartan 25 mg daily p.o. #Hyperlipidemia - Atorvastatin 10 mg p.o. #Type 2 obesity BMI 36.7 -Lifestyle modification counseling and dietary habits counseling #Possible urinary tract infection vs. contamination #UA with yeast - monitor for symptoms, consider culture if symptomatic - Ceftriaxone daily IV #Depression Not currently managed #Perimenopausal symptoms -Reports hot flashes; possible hormonal transition Case discussed with Dr. Chiu Goals of care discussed with the patient for 31 minutes Code status: Full code Plan discussed with: Patient Date of Service: Dec 06, 2024 Billing Provider: ROSELYN CHIU MD Common Visit Codes: [id number] INP/OBS CARE(HIGH) ANTONIO DAVID RESIDENT Dec 06, 2024 14:25 ROSELYN CHIU MD Dec 07, 2024 10:23
[2024-12-07] VITALS (13 sets, daily range): BP systolic 94–110; BP diastolic 40–64; PULSE 68–96; RESP 16–18; TEMP 97.7–98.5; O2SAT 96–100
[2024-12-07 06:44] LABS: Basophils # (auto) 0 10 ^3/uL (0-0.2); Basophils % (auto) 0.1 % (0.0-2.0); Eosinophils # (auto) 0 10 ^3/uL (0-0.8); Hemoglobin 11.5 g/dL (12.2-16.2); Lymphocytes # (auto) 0.7 10 ^3/uL (0.4-5.4); Lymphocytes % (auto) 8.5 % (10.0-50.0); Mean Corpuscular Hemoglobin 30.2 pg (28.0-32.0); Mean Corpuscular Hgb Conc. 33.9 g/dL (32.0-36.0); Monocytes # (auto) 0.6 10 ^3/uL (0-1.3); Monocytes % (auto) 7.6 % (0.0-12.0); Neutrophils % (auto) 83.8 % (37.0-80.0); Platelet Count (auto) 242 10^3/uL (140-450); Red Blood Cells 3.82 10^6/uL (4.0-5.20); White Blood Cell 8.3 10^3/uL (4.4-10.8)
[2024-12-07 06:45] LABS: Chloride 106 mmol/L (98-107); Potassium 4.4 mmol/L (3.5-5.1); Sodium 140 mmol/L (136-145)
[2024-12-07 06:46] LABS: Anion Gap 9 (5-15); Carbon Dioxide 25 mmol/L (20-31)
[2024-12-07 06:52] LABS: BUN/Creatinine Ratio 17.3 (10.0-20.0); Blood Urea Nitrogen 14 mg/dL (9-23)
[2024-12-07 06:55] LABS: Glucose 135 mg/dL (74-106)
[2024-12-07 10:52] LABS: Hepatitis B Surface Antigen Negative (Negative); Hepatitis C Antibody Negative (Negative)
[2024-12-07] MEDS: ALBUTEROL SULF 2.5 MG/0.5ML(0.5%) NEB SOLN NEB SCH (12:37)
[2024-12-07] MEDS: IPRATROPIUM BROM 0.5 MG/2.5ML INH SOL NEB SCH (12:38)
--- NOTE | 2024-12-07 18:32 | DVHPNRES ---
Progress Note Date Seen: Dec 07, 2024 Resident Creating Document: ANTONIO DAVID RESIDENT Has the PT tested + for MRSA If YES, has PT been informed?: No Medical Necessity Reason Pt with a Central, PICC or Fol: No Subjective Review of Systems The patient is a 54-year-old [place] Islander-speaking female with a past medical history of asthma (since childhood), type 2 diabetes mellitus, hypertension, hyperlipidemia, type 2 obesity, and depression, who presented to the emergency department with progressive shortness of breath and chest tightness that have been worsening over the past several days. She reports having daily episodes of dyspnea and chest tightness, especially during physical activity and at night, but this episode was more intense and prompted her to seek medical attention. She admits to poor adherence to medications and lack of consistent primary care follow-up. She does not take any regular asthma or diabetes medications and has not been evaluated by a electrician helper. 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 She has no recent travel, sick contacts, or known exposure to allergens or irritants.On presentation, she was found to be in acute hypoxic respiratory failure, requiring oxygen supplementation and nebulized bronchodilator treatments, with improvement in her symptoms. She is currently on 2 L nasal cannula, maintaining adequate oxygen saturation. Patient still on oxygen supplementation and duoneb and prednisone po. hemodynamically stable, improving Patient reports: Feels better Changes from previous H/P or p: Changes Objective vital signs Vital Sign Date Time Temp Pulse Resp B/P (MAP) Pulse Ox O2 Delivery O2 Flow Rate FiO2 12/07/24 17:00 98.3 68 16 110/64 (79) 97 98.3 12/07/24 08:00 Nasal Cannula* 3 32 Total Intake and Output 12/06/24 12/06/24 12/07/24 15:00 23:00 07:00 Intake Total 770 ml 180 ml 1000 ml Balance 770 ml 180 ml 1000 ml medications Current Medications Medications Dose Ordered Sig/Kassie Route Start Time Stop Time Status Last Admin Dose Admin Losartan Potassium 25 mg DAILY PO 12/06/24 10:00 12/07/24 09:52 25 MG Famotidine 20 mg DAILY IV 12/06/24 10:00 12/07/24 09:52 20 MG Methylprednisolone Sodium Succinate 40 mg BID IV 12/05/24 22:00 12/07/24 09:52 40 MG Albuterol 2.5 mg Q4HPRN PRN NEB 12/05/24 21:15 12/06/24 20:22 2.5 MG Ipratropium [place] 0.5 mg Q4HPRN PRN NEB 12/05/24 21:15 12/06/24 20:22 0.5 MG Atorvastatin Calcium 10 mg HS PO 12/05/24 22:00 12/06/24 21:43 10 MG Ceftriaxone Sodium 50 ml @ 100 mls/hr DAILY@1200 IV 12/06/24 12:00 12/07/24 11:30 100 MLS/HR Diagnostic Test (Pha) 1 strip ACHS 12/05/24 22:00 12/07/24 18:08 1 STRIP Insulin Human Regular ACHS SC 12/05/24 22:00 12/07/24 18:08 3 UNITS Dextrose 50 ml UD PRN IV 12/05/24 21:15 Sodium Chloride 1,000 ml @ 60 mls/hr [id number] IV 12/05/24 21:15 12/06/24 15:16 60 MLS/HR Acetaminophen 650 mg Q6HP PRN PO 12/05/24 21:15 12/06/24 16:40 650 MG Albuterol 2.5 mg Q6HWA NEB 12/07/24 12:00 12/07/24 12:37 2.5 MG Ipratropium [place] 0.5 mg Q6HWA NEB 12/07/24 12:00 12/07/24 12:38 0.5 MG Examination: GENERAL:Normal, HEENT:Normal, NECK:Normal, LUNGS:Abnormal, CVS:Normal, ABDOMEN:Normal, MSK:Normal, SKIN:Normal, NEURO:Normal, :Normal laboratory and microbiology Laboratory Tests 12/07/24 06:02 Test 12/07/24 06:02 Range/Units Serum Glucose 135 H 74-106 mg/dL Microbiology Date/Time Source Procedure Growth Status 12/05/24 12:40 Blood Blood Culture - Preliminary NO GROWTH AFTER 48 HOURS OF INCUBATION. Resulted 12/05/24 11:54 Voided Urine Urine Culture - Final Complete Problem List/Assessment/Plan Problem List/Assessment/Plan #Acute hypoxic respiratory failure due to asthma exacerbation secondary to poorly controlled asthma due to medication non adherence #Uncontrolled persistent asthma -nasal cannula 2l - prednisone 40 mg po daily -Ipratropium bromide, 0.5 mg -Albuterol 2.5 mg q.4 p.r.n. neb #Type 2 diabetes mellitus ,A1c 6.3% -Insulin sliding scale protocol #Hypertension - Losartan 25 mg daily p.o. #Hyperlipidemia - Atorvastatin 10 mg p.o. #Type 2 obesity BMI 36.7 -Lifestyle modification counseling and dietary habits counseling #Possible urinary tract infection vs. contamination #UA with yeast - monitor for symptoms, consider culture if symptomatic - Ceftriaxone daily IV #Depression Not currently managed #Perimenopausal symptoms -Reports hot flashes; possible hormonal transition Case discussed with Dr. Chiu Goals of care discussed with the patient for 31 minutes Code status: Full code Plan discussed with: Patient My Orders My Orders Orders - ANTONIO DAVID Procedure Category Date Status Time Albuterol Medneb PHA 12/07/24 In Process (Ventolin Medneb) 12:00 Ipratropium Medneb PHA 12/07/24 In Process (Atrovent Medneb) 12:00 Date of Service: Dec 07, 2024 Billing Provider: ROSELYN CHIU MD Common Visit Codes: [id number] INP/OBS CARE(HIGH) ANTONIO DAVID Dec 07, 2024 18:32 ROSELYN CHIU MD Dec 08, 2024 14:47
[2024-12-07] MEDS: MELATONIN 5 MG TAB PO ONE (23:43)
[2024-12-08] VITALS (11 sets, daily range): BP systolic 101–114; BP diastolic 57–64; PULSE 65–84; RESP 16–18; TEMP 36.7; O2SAT 94–100
[2024-12-08 06:57] LABS: Basophils # (auto) 0 10 ^3/uL (0-0.2); Basophils % (auto) 0.1 % (0.0-2.0); Eosinophils # (auto) 0 10 ^3/uL (0-0.8); Hematocrit 36.8 % (36.0-46.0); Hemoglobin 12.2 g/dL (12.2-16.2); Lymphocytes # (auto) 0.8 10 ^3/uL (0.4-5.4); Lymphocytes % (auto) 13.3 % (10.0-50.0); Mean Corpuscular Hemoglobin 29.4 pg (28.0-32.0); Mean Corpuscular Hgb Conc. 33.1 g/dL (32.0-36.0); Mean Corpuscular Volume 88.8 fL (80.0-100.0); Monocytes # (auto) 0.4 10 ^3/uL (0-1.3); Monocytes % (auto) 6.8 % (0.0-12.0); Neutrophils # (auto) 4.8 10 ^3/uL (1.6-8.6); Neutrophils % (auto) 79.8 % (37.0-80.0); Nucleated Red Blood Cells % 0.1 %; Platelet Count (auto) 230 10^3/uL (140-450); Red Blood Cells 4.15 10^6/uL (4.0-5.20); Red Cell Distribution Width 13.5 % (11.8-14.3)
[2024-12-08 07:03] LABS: Anion Gap 9 (5-15); Carbon Dioxide 28 mmol/L (20-31); Chloride 104 mmol/L (98-107); Potassium 4.1 mmol/L (3.5-5.1); Sodium 141 mmol/L (136-145)
[2024-12-08 07:10] LABS: BUN/Creatinine Ratio 19.4 (10.0-20.0); Blood Urea Nitrogen 13 mg/dL (9-23)
[2024-12-08 07:12] LABS: Glucose 135 mg/dL (74-106)
[2024-12-08] MEDS ORDERED: LOSA-533 PO (12:15)
[2024-12-08] MEDS ORDERED: PRED20TA2 PO (12:15)
[2024-12-08] MEDS ORDERED: BUDE1AER16 IN (12:15)
[2024-12-08] MEDS ORDERED: ATOR20TA50 PO (12:15)
[2024-12-08] MEDS ORDERED: MONT10TA23 PO (15:14)
== END 2024-12-08 15:50 | disposition home or self-care (01) | DRG 133 ==
LOC: ER 10:45 → OVERFLOW 21:56 → TELE-EAST 23:50
PROVIDERS: ADMIT Student in an Organized Health Care Education/Training Program; ATTEND Emergency Medicine
DX: J96.01 Acute respiratory failure with hypoxia (principal); J45.41 Moderate persistent asthma with (acute) exacerbation; E11.9 Type 2 diabetes mellitus without complications; E66.9 Obesity, unspecified; E78.5 Hyperlipidemia, unspecified; B37.49 Other urogenital candidiasis; F32.A Depression, unspecified; I10 Essential (primary) hypertension; Z20.822 Contact with and (suspected) exposure to COVID-19; N95.1 Menopausal and female climacteric states; R23.2 Flushing; Z90.49 Acquired absence of other specified parts of digestive tract; Z98.891 History of uterine scar from previous surgery; Z68.36 Body mass index [BMI] 36.0-36.9, adult; Z91.148 Patient's other noncompliance with medication regimen for other reason
CPT/HCPCS: 36415; 36600; 71045; 80048; 80053; 80061; 81001; 82805; 82962; 83036; 83605; 83880; 84484; 85025; 85379; 85610; 86308; 86803; 87040; 87086; 87340; 87426; 87804; 93005; 94640; 96365; 96375; G0378; J1815; J3490